=== PATIENT | female | born 1970 | race Caucasian/White ===

== ENCOUNTER → 2020-08-28 09:24 | Outpatient (BNVA) | payer OTHER, SELFPAY | PROVIDERS: Visit Provider Surgery | DX: Z12.11 Encounter for screening for malignant neoplasm of colon (principal); Z20.822 Contact with and (suspected) exposure to COVID-19 | CPT/HCPCS: 87635 ==

== ENCOUNTER 2020-09-03 06:29 | Day surgery (SDC) | payer OTHER, SELFPAY ==
[2020-09-01 09:54] VITALS: BMI 23.6
[2020-09-03 06:55] VITALS: BP 129/94; PULSE 77; RESP 16; TEMP 37; O2SAT 99
--- NOTE | 2020-09-03 06:56 | P.HP_ITS ---
Same Day Surgery H&P Indication for Procedure/HPI DATE OF PROCEDURE: September 03, 2020 CHIEF COMPLAINT/INDICATIONFOR SURGICAL PROCEDURE: Screening colonoscopy PREOP DIAGNOSIS: Screening colonoscopy PLANNED PROCEDRUE: Operation Date: 09/03/20 07:30 Proposed Procedures p Colonoscopy 50268 Z12.11(Not Applicable) - Mani Richards MD This is a pleasant 49 years old female patient referred to my practice to discuss screening colonoscopy. Patient reports that never had a colonoscopy before and she gives history of chronic constipation, denies bleeding per rectum or history of colon cancer and her weight has been fluctuating. Interim history 09/11/2020 Patient comes today for screening colonoscopy ROS All systems have been reviewed, negative except as per the above or per problem list Medications/Allergies* Allergies/Adverse Reactions Allergy/AdvReac Type Severity Reaction Status Date / Time No Known Allergies Allergy Verified 09/03/20 06:58 Pertinent History/Comorbid Conditions* Medical History (Updated 07/31/20 @ 18:04 by Mani Richards MD) History of constipation Family History (Updated 07/30/20 @ 13:35 by Ani Moody) CAD (coronary artery disease) Mother Cancer Grandmother Hypertension Mother Stroke Mother Denies family history of Diabetes Social History Smoking and tobacco status: never smoked Alcohol intake: current Alcohol intake frequency: holidays/special occasions only Lives independently: Yes Household members: spouse and children Pertinent Exam Findings alert, oriented x 3, clear to auscultation bilaterally, regular rate & rhythm and procedure specific exam findings (Abdominal examination nontender nondistended soft) Recommendations Surgery/Procedure today (Screening colonoscopy ) Other Plans: Plan of care; After thorough history and physical examination and reviewing the chart, plan to perform screening colonoscopy. I discussed with the patient in details the risks,benefits,alternatives and indications.The risk of aspiration, bleeding, soft tissue injury, perforation of the colon and other potential concomitant complications were explained to the patient in details,also the potential need for Laproscoy/Laparotomy to repair any related complications including but not limited to colectomy and or Closotomy.The patient understood this well and did agree to proceed. Rationale was carefully and clearly discussed with the patient.Appropriate informed consent have been reviewed and signed All questions have been answered and all concerns have been addressed to patient's satisfaction. Verbal and written Instructions were given to the patient for colonoscopy prep Coding Level of Care Code Acute Diesel Bus Mechanic for Roblesg Leni
--- NOTE | 2020-09-03 07:00 | ANES.PREANE2 ---
Pre-Anesthetic Assessment Pre-Anesthetic Assessment: Height/Weight: Height 1.7 m Weight 68.492 kg Preop Diagnosis: Screening colonoscopy Proposed Procedure: Operation Date: 09/03/20 07:30 Proposed Procedures p Colonoscopy 09317 Z12.11(Not Applicable) - Mani Richards MD Familial anesthetic complications: none Was Beta Jarad taken within 24 hours: N/A Was Clonidine taken within 24 hours: N/A Social: Social History: Alcohol (occassional) and No tobacco Exam: Pre-Anes Outpt Exam: alert, oriented x 3, clear to auscultation bilaterally and regular rate & rhythm Airway: Submandibular: WNL Cervical ROM: WNL MP: 2 Dentition: Full Additional comments: small mouth opening Pulmonary: Pulmonary: None reported CV/HEM: CV/HEM: None reported : : None reported Hepatic: Hepatic: None reported GI: GI: None reported Metabolic: Metabolic: None reported Musc/skel: Musc/skel: None reported Neuropsych: Neuropsych: GAO (frequent) Anesthetic Plan: ASA status: 2 Anesthesia: MAC Risk of > 500 ml blood loss (7ml/kg in children): No PFSH Anesthesia PFSH: Medical History History of constipation Family History Mother CAD (coronary artery disease) Hypertension Stroke Grandmother Cancer Denies family history of Diabetes Social History Smoking and tobacco status: never smoked Alcohol intake: current Alcohol intake frequency: holidays/special occasions only Lives independently: Yes Household members: spouse and children Data Anesthesia Cardiac Studies: No Data to Display
[2020-09-03] MEDS: sodium chloride 0.9% 1,000 ML 30 ML IV (07:07)
[2020-09-03] MEDS: ondansetron 2 mg/ML SDV 2 mL 4 MG IVP (07:09)
--- NOTE | 2020-09-03 08:18 | ANE.PACU2 ---
Inpatient post-anesthesia follow up: Airway intact: Yes Vital signs: Temperature 98.6 F Pulse Rate 77 Respiratory Rate 16 Blood Pressure 129/94 Pulse Oximetry 99 Oxygen Delivery Me thod Room Air Oxygen Flow Rate Fraction of Inspir ed Oxygen Hydration adequate: Yes Nausea and vomiting: No Pain level: 1 Mental status: Baseline
[2020-09-03 08:20] VITALS: BP 85/52; PULSE 65; RESP 16; TEMP 36.2; O2SAT 99
[2020-09-03 08:41] VITALS: BP 100/62; PULSE 63; RESP 20; O2SAT 100
== END 2020-09-03 08:46 | disposition home or self-care (01) ==
PROVIDERS: Visit Provider Surgery
PROC: 0DJD8ZZ Inspection of Lower Intestinal Tract, Via Natural or Artificial Opening Endoscopic (ICD-10-PCS; CPT 45378; principal; 2020-09-03 07:30)
DX: Z12.11 Encounter for screening for malignant neoplasm of colon (principal); K63.89 Other specified diseases of intestine
CPT/HCPCS: 45378; 96361; 96374; J2405; J2704; J7030

== ENCOUNTER 2021-04-06 09:37 | Outpatient (CLI) | payer OTHER, SELFPAY ==
--- NOTE | 2021-04-06 09:46 | MR_ITS ---
WS: [id number] MRI RIGHT SHOULDER HISTORY: IMPINGEMENT SYNDROME OF RIGHT SHOULDER REGION COMPARISON: None available. TECHNIQUE: Multiplanar sequences of the shoulder joint are submitted. Very minimal hypertrophy involving the RIGHT clavicular head. Small amount of increased signal throug h the AC ligament. Small amount of fluid in the subdeltoid bursa. There is a small osteophyte measuri ng approximately 4 mm from the distal undersurface of the acromion with mild subacromial impingement. Biceps tendon is in normal position. No os acromion. Small subchondral cyst in the posterior lateral humeral head. No fractures. Very minimal narrowing of the glenohumeral joint. No muscle atrophy or edema. Very mild tendinopathy and increased T2 signal a long the articular surface of the distal supraspinatus tendon. Most consistent with tendinopathy and not a tear. No rotator cuff tear is identified. Very small amount of increased signal and fraying inv olving the superior labrum. Small incomplete tear not excluded. Otherwise the labrum is unremarkable. MR/MR shoulder RT wo con* [id number] IMPRESSION: 1. Mild subacromial impingement secondary to an osteophyte from the distal und ersurface of the acromion. 2. No rotator cuff tear. 3. Minimal tendinopathy in the distal articular surface supraspinatus tendon. 4. Fraying and possible minimal tear involving the superior labrum.
== END 2021-04-06 09:38 | disposition home or self-care (01) ==
PROVIDERS: Visit Provider Nurse Practitioner
DX: G43.101 Migraine with aura, not intractable, with status migrainosus (principal); M75.41 Impingement syndrome of right shoulder
CPT/HCPCS: 73221

== ENCOUNTER → 2021-06-03 09:00 | Outpatient (BNVA) | payer OTHER, SELFPAY | PROVIDERS: Referring Provider Nurse Practitioner; Visit Provider Specialist | DX: M25.511 Pain in right shoulder (principal) | CPT/HCPCS: 73030 ==

== ENCOUNTER → 2022-02-27 11:47 | Outpatient (BNVA) | payer OTHER, SELFPAY | PROVIDERS: PCP Nurse Practitioner Family; Visit Provider Nurse Practitioner Family | DX: R30.0 Dysuria (principal); N12 Tubulo-interstitial nephritis, not specified as acute or chronic | CPT/HCPCS: 81000; 87077; 87086; 87184 ==

== ENCOUNTER 2023-02-23 10:03 | Emergency (ER) | payer OTHER, SELFPAY ==
[2023-02-23 10:05] VITALS: BP 142/89; PULSE 81; RESP 17; TEMP 36.5; O2SAT 100; BMI 24.0
--- NOTE | 2023-02-23 10:21 | US_ITS ---
WS: [id number] ULTRASOUND ABDOMEN LIMITED CLINICAL INFORMATION: biliary colic like symptoms COMPARISON: None. FINDINGS: Liver Size: Normal. Craniocaudal length: 14.0 cm. Echogenicity: Normal. Surface nodularity: None. Mass (size and location): None. Bile ducts Intrahepatic ducts: Normal. Common bile duct diameter: 0.3 cm. Gallbladder Contracted gallstones: Present Gallbladder sludge: Present Gallbladder wall thickening: None. Pericholecystic fluid: None. Sonographic Ball sign: Absent. Pancreas Not visualized due to bowel gas Right kidney: Normal. Hydronephrosis: None. Size: 9.7 cm x 5.6 cm x 4.5 cm. Abdominal aorta and IVC Visualized portions are normal. Ascites: None. IMPRESSION: 1. Patient not NPO. Gallbladder contracted. 2. Prominent shadowing gallbladder calculus measuring 11 mm. No gallbladder wall thickening or peric holecystic fluid. Gallbladder sludge. 3. No hydronephrosis in the RIGHT kidney. 4. Normal common bile duct measuring 2.8 mm.
--- NOTE | 2023-02-23 10:23 | ED_ITS ---
HPI - Abdominal Pain General: Chief Complaint: Abdominal Pain Stated Complaint: fever, NV, abd pain Time Seen by Provider: 02/23/23 10:08 Source: patient Mode of arrival: ambulatory Limitations: no limitations History of Present Illness: Patient is a nice 52-year-old female who presents to ED today for evaluation of what she believes are biliary colic symptoms. Patient states she has had intermittent episodes of RUQ/epigastric abdominal pain, nausea, vomiting, diarrhea following eating for several months. She feels like the frequency of episodes are increasing and states over the past 1 to 2 weeks she has had increasing frequency and severity of symptoms. She states yesterday/today she began having pain that was much worse than her usual. She states she had a non- official gallbladder ultrasound performed by an manufacturing engineering technician friend earlier today and was told that my gallbladder was non-functioning and measuring at 3.5 and had a stone . Patient reports her symptoms always begin after eating. She reports pain mainly to epigastric region with radiation around her abdomen and into her back. At time of presentation in ED she is actually complaining of right lower abdominal pain. Denies history of excessive alcohol/NSAIDS. No blood noticed in emesis/stool. No dark/tarry stools. No fevers. MD elicited complaint: abdominal pain Pertinent past history: none Onset (ago): week(s) Pain Consistency: intermittent Location: Epigastric and RUQ Severity: moderate Quality: aching and sharp Radiation: back Migration to: no migration Exacerbating factors: eating Relieving factors: nothing Associated Symptoms: Reports diarrhea, nausea and vomiting; Denies change in bowel habits, chills, dysuria, fever(s), hematochezia, hematemesis and melena Related Data: Patient : No Review of Systems Const: Denies: fever(s), chills, body aches, fatigue or malaise Card: Denies: chest pain Resp: Denies: dyspnea GI: Reports: abdominal pain, nausea, vomiting and diarrhea; Denies: hematemesis, change in bowel habits, hematochezia or melena : Denies: flank pain, difficulty voiding, dysuria, urinary frequency, urinary urgency or urinary hesitancy Musc: Denies: neck pain, back pain, extremity pain or joint pain Skin/Breast: Denies: rash Neuro: Denies: headache(s), numbness in extremities, weakness in extremities o r sensory changes [facility] ED PFSH: Medical History Encounter for screening colonoscopy History of constipation Tortuous colon Surgical History History of History of hysterectomy History of tonsillectomy Family History Mother CAD (coronary artery disease) Hypertension Stroke Grandmother Cancer Denies family history of Diabetes Social History Substance/Drug Use: never Physical Exam Const: COMMON NORMALS: no acute distress, average body habitus, patient orient ed x3, no limitations, healthy appearing, alert and well nourished Eye: COMMON NORMALS: no scleral icterus Resp: COMMON NORMALS: normal respiratory effort and clear to auscultation bilaterally AUSCULTATION: clear to auscultation bilaterally Cardio: COMMON NORMALS: regular rate and regular rhythm RATE: regular rate RHYTHM: regular rhythm GI: COMMON NORMALS: Normal to inspection, nondistended, normoactive bowel sounds present, Soft to palpation, No hepatosplenomegaly present and no masses INSPECTION: Yes normal to inspection AUSCULTATION: Yes normoactive bowel sounds PALPATION: Yes Soft to palpation, Yes Tenderness to palpation present (GI) (epigastric) Details: RLQ and RUQ, No Guarding due to palpation present (GI ), No Rigid due to palpation and Yes No hepatosplenomegaly present : COMMON NORMALS: Yes no CVA tenderness BLADDER/KIDNEY EXAM: Yes no CVA tenderness Back/Pelvis: COMMON NORMALS: no CVA tenderness Extremity: GENERAL: Yes normal exam except as noted Neuro: TRUDY COMA SCALE: document GCS findings Trudy coma scale eye opening: Spontaneous Trudy coma scale verbal response: Orientated Trudy coma scale motor response: Obey commands [place] coma scale total score: 15 COMMON NORMALS: patient oriented x3 and gait normal SENSORIUM/ORIENTATION: Yes alert Skin: COMMON NORMALS: no rashes or lesions noted GENERAL SKIN EXAM: no rashes or lesions noted Course Vital Signs: Vital signs: Vital Signs Temperature 97.7 F 02/23/23 10:05 Pulse Rate 71 02/23/23 13:00 Respiratory Rate 17 02/23/23 10:05 Blood Pressure 108/78 02/23/23 13:00 Pulse Oximetry 96 02/23/23 13:00 Oxygen Delivery Me thod Room Air 02/23/23 10:05 MDM - Abdominal Pain Medical Decision Making Vital signs are stable. She has a normal white count. Normal LFTs including T. bili and lipase. Her UA is clear. US gallbladder is contracted with cholelithiasis. She did have gallbladder sludge. No gallbladder wall thickening or pericholecystic fluid. CT scan was ordered due to continued pain today located to her right lower quadrant today. This is essentially normal. They did see cecal constipation. At this time I think symptoms most likely are related to symptomatic cholelithiasis/biliary colic. She states she is going out of town in 2 weeks and ideally would like to follow-up with with general surgery prior to this. I will place a referral with case management to try to get her prompt appointment. She declines pain/nausea medications for home. Strict return ED precautions given. Lab Data 02/23/23 10:30 02/23/23 10:30 Labs/Radiology: Laboratory Results WBC 7.24 10^3/uL (3.29-11.43) 02/23/23 10:30 RBC 4.69 10^6/uL (3.85-5.65) 02/23/23 10:30 Hgb 13.90 g/dL (11.27-16.99) 02/23/23 10:30 Hct 41.3 % (36-47) 02/23/23 10:30 MCV 88.1 fl (85-98) 02/23/23 10:30 MCH 29.6 pg (27-33) 02/23/23 10:30 MCHC 33.7 g/dL (30-55) 02/23/23 10:30 RDW 12.9 % (12.1-15.1) 02/23/23 10:30 Plt Count 258 10^3/cmm (157-399) 02/23/23 10:30 MPV 10.5 fL (7.4-10.4) H 02/23/23 10:30 Neut % (Auto) 68.8 % 02/23/23 10:30 Lymph % (Auto) 18.9 % 02/23/23 10:30 [place] % (Auto) 9.4 % 02/23/23 10:30 Eos % (Auto) 1.4 % 02/23/23 10:30 Baso % (Auto) 1.1 % 02/23/23 10:30 Neut # (Auto) 4.98 10^3/uL (1.8-7.7) 02/23/23 10:30 Lymph # (Auto) 1.4 10^3/uL (0.8-4.8) 02/23/23 10:30 [place] # (Auto) 0.7 10^3/uL (0.2-0.9) 02/23/23 10:30 Eos # (Auto) 0.1 10^3/uL (0.0-0.8) 02/23/23 10:30 Baso # (Auto) 0.1 10^3/uL (0.0-0.1) 02/23/23 10:30 Nucleated RBC % (auto) 0 % 02/23/23 10:30 Nucleated RBCs # 0.0 /100WBC 02/23/23 10:30 Sodium 138 mmol/L (136-145) 02/23/23 10:30 Potassium 4.4 mmol/L (3.5-5.1) 02/23/23 10:30 Chloride 102 mmol/L (98-107) 02/23/23 10:30 Carbon Dioxide 27 mmol/L (22-29) 02/23/23 10:30 Anion Gap 13.4 (5-19) 02/23/23 10:30 BUN 12 mg/dL (6-20) 02/23/23 10:30 Creatinine 0.8 mg/dL (0.5-0.9) 02/23/23 10:30 GFR Calculation 75.0 mL/min (90-130) L 02/23/23 10:30 Glucose 93 mg/dL (65-115) 02/23/23 10:30 Calculated Osmolality 285 mOsm/kg (285-295) 02/23/23 10:30 Calcium 8.9 mg/dL (8.5-10.5) 02/23/23 10:30 Total Bilirubin 0.3 mg/dL (0.15-1.2) 02/23/23 10:30 AST 17 U/L (0-32) 02/23/23 10:30 ALT 17 U/L (0-33) 02/23/23 10:30 Alkaline Phosphatase 86 U/L (35-105) 02/23/23 10:30 Total Protein 7.0 g/dL (6.6-8.7) 02/23/23 10:30 Albumin 4.3 g/dL (3.5-5.2) 02/23/23 10:30 Globulin 2.7 g/dL (1.3-4.6) 02/23/23 10:30 Lipase 39 U/L (13-60) 02/23/23 10:30 Urine Color Colorless (Yellow) 02/23/23 10:23 Urine Appearance Clear (CLEAR) 02/23/23 10:23 Urine pH 6 (5-7) 02/23/23 10:23 Ur Specific [place] 1.010 (1.005-1.030) 02/23/23 10:23 Urine Protein Neg (Negative) 02/23/23 10:23 Urine Glucose (UA) Norm (Normal) 02/23/23 10:23 Urine Ketones Negative (Negative) 02/23/23 10:23 Urine Blood Neg (Negative) 02/23/23 10:23 Urine Nitrate Negative (Negative) 02/23/23 10:23 Urine Bilirubin Neg (Negative) 02/23/23 10:23 Urine Urobilinogen Norm mg/dL (Negative) 02/23/23 10:23 Ur Leukocyte Esterase Negative (Negative) 02/23/23 10:23 All radiology interpretation(s) finalized by discharge Discharge Plan Discharge Patient Disposition: Home Clinical Impression: Biliary colic Condition: Stable Prescriptions: No Action No Known Home Medications Discharge Orders: Discharge ED (Routine); Ordered 02/23/23 Ordered By: Raven Schilling Referrals: Renetta Ordonez FNP [Primary Care Provider] - Patient Instructions: Biliary Colic (ED), Abdominal Pain (ED) Activity Restrictions/Additional Instructions: As we discussed I will have case management reach out to you in regards to your follow-up appoint with general surgery for further evaluation/treatment of your biliary colic-like symptoms. You may return to the emergency department at anytime for worsening or severe abdominal pain, repetitive episodes of vomiting or diarrhea, yellowing to your skin or eyes, fevers, generally feeling worse or unwell, or any other concerns you may have. It was a pleasure to care for you today. I hope you begin to feel better soon. Coding Level of Care Code ED Quarry Equipment Operator for Louisa Farrar
[2023-02-23 10:36] LABS: Basophils # 0.1 10^3/uL (0.0-0.1); Basophils % 1.1 %; Eosinophils # 0.1 10^3/uL (0.0-0.8); Eosinophils % 1.4 %; Hematocrit 41.3 % (36-47); Lymphocytes # 1.4 10^3/uL (0.8-4.8); Lymphocytes % 18.9 %; Mean Corpuscular HGB Conc 33.7 g/dL (30-55); Mean Corpuscular Hemoglobin 29.6 pg (27-33); Mean Corpuscular Volume 88.1 fl (85-98); Mean Platelet Volume 10.5 fL (7.4-10.4); Monocytes # 0.7 10^3/uL (0.2-0.9); Monocytes % 9.4 %; Neutrophils # 4.98 10^3/uL (1.8-7.7); Neutrophils % 68.8 %; Nucleated Red Blood Cells % 0 %; Platelet Count 258 10^3/cmm (157-399); Red Blood Count 4.69 10^6/uL (3.85-5.65); Red Cell Distribution Width 12.9 % (12.1-15.1); White Blood Count 7.24 10^3/uL (3.29-11.43)
[2023-02-23 10:36] LABS: Add Urine Microscopic? NO; Charge for UA Resulting for Rev
--- NOTE | 2023-02-23 10:38 | PC.PHAR ---
PT STATES TAKING NO MEDICATIONS AT THIS TIME. 02/23/23
[2023-02-23 10:52] LABS: Bilirubin Urine Neg (Negative); Blood Urine Neg (Negative); Glucose Urine UA Norm (Normal); Ketones Urine Negative (Negative); Leukocyte Esterase Urine Negative (Negative); Nitrate Urine Negative (Negative); Protein Urine Neg (Negative); Urine Appearance Clear (CLEAR); Urine Color Colorless (Yellow); Urobilinogen Urine Norm (Negative); pH Urine 6 (5-7)
[2023-02-23 10:56] LABS: Alanine Aminotransferase 17 U/L (0-33); Albumin Level 4.3 g/dL (3.5-5.2); Alkaline Phosphatase 86 U/L (35-105); Anion Gap 13.4 (5-19); Aspartate Amino Transferase 17 U/L (0-32); Blood Urea Nitrogen 12 mg/dL (6-20); Calcium 8.9 mg/dL (8.5-10.5); Carbon Dioxide 27 mmol/L (22-29); Chloride 102 mmol/L (98-107); Globulin 2.7 g/dL (1.3-4.6); Glucose 93 mg/dL (65-115); Lipase 39 U/L (13-60); Osmolality Calculated 285 mOsm/kg (285-295); Potassium 4.4 mmol/L (3.5-5.1); Sodium 138 mmol/L (136-145); Total Bilirubin 0.3 mg/dL (0.15-1.2)
[2023-02-23 11:12] VITALS: BP 133/74; PULSE 70; O2SAT 98
[2023-02-23 13:00] VITALS: BP 108/78; PULSE 71; O2SAT 96
--- NOTE | 2023-02-23 13:07 | CT_ITS ---
WS: [id number] CT ABDOMEN PELVIS TECHNIQUE: Contrast-enhanced CT of the abdomen and pelvis with coronal and sagittal reformatted image s. CLINICAL INFORMATION: ab pain, N/V/D, RLQ pain COMPARISON: None. DLP: 535.[address] scans at [facility] use at least one of these dose optimization techniques: automated e xposure control; mA and/or kV adjustment per patient size (includes targeted exams where dose is matc hed to clinical indication); or iterative reconstruction. FINDINGS: Gallbladder is contracted. Cholelithiasis. No gallbladder wall thickening or pericholecystic fluid. Slight bibasilar atelectasis. Mild diffuse fatty filtration of the liver. Mild hepatomegaly. Normal p ortal vein and splenic vein. Normal spleen. Normal pancreas. Adrenal glands are normal. Normal renal parenchymal enhancement. No hydronephrosis. Incidental RIGHT renal cyst. Normal caliber abdominal aor ta. Celiac and SMA are patent. Urine distended bladder. Low-lying cecum in the RIGHT lower quadrant with cecal constipation. Tiny fa t-containing umbilical hernia. IMPRESSION: 1. Gallbladder is contracted. Cholelithiasis. No gallbladder wall thickening or pericholecystic flui d. 2. No hydronephrosis in either kidney. 3. Diffuse fatty filtration of the liver. Moderate volume megaly. 4. Urine distended bladder. 5. Low-lying cecum in the RIGHT lower quadrant with mild cecal constipation.
[2023-02-23] MEDS: iohexol 350 mg/mL 500 mL Btl (per mL) IV (13:46)
[2023-02-23 14:54] VITALS: BP 130/82; PULSE 77; O2SAT 90
--- NOTE | 2023-02-23 15:24 | DCPLANNER ---
Message sent to Gen Surg for Follow up Biliary Colic : Needs soon going out of town.
== END 2023-02-23 14:56 | disposition home or self-care (01) ==
PROVIDERS: Emergency Provider Physician Assistant; PCP Nurse Practitioner Family
DX: K80.20 Calculus of gallbladder without cholecystitis without obstruction (principal)
CPT/HCPCS: 74177; 76705; 80053; 81003; 83690; 85025; 96374; 99285; Q9967

== ENCOUNTER 2023-03-30 07:40 | Day surgery (SDC) | payer OTHER, SELFPAY ==
[2023-03-30] VITALS (12 sets, daily range): BP systolic 119–135; BP diastolic 72–88; PULSE 52–73; RESP 12–28; TEMP 36.2–36.4; O2SAT 96–100; BMI 24.1
[2023-03-30] MEDS: sodium chloride 0.9% 1,000 ML 30 ML IV (08:09)
[2023-03-30] MEDS: scopolamine 1.5 Patch 1 PATCH TRANSDERMA (08:12)
[2023-03-30] MEDS: ondansetron 2 mg/ML SDV 2 mL 4 MG IVP (08:31)
--- NOTE | 2023-03-30 08:40 | W.PM.OPSUD ---
Surgery/Procedure H&P Update DATE OF PROCEDURE: March 30, 2023 DATE H&P PERFORMED: 04/03/23 H&P UPDATE INFORMATION: I have reviewed H&P completed within last 30 days, I have examined patient prior to procedure, No changes to prior documentation and H&P is in [facility] [place] on date indicated PLANNED PROCEDURE: Operation Date: 03/30/23 09:35 Proposed Procedures p 25654 lap dario K80.20(Not Applicable) - Ryan Avila MD
--- NOTE | 2023-03-30 09:07 | ANES.PREANE2 ---
Pre-Anesthetic Assessment Height/Weight: Height 1.73 m Weight 72.121 kg Temp Pulse Resp BP Pulse Ox O2 Del Method 97.5 F L 73 18 135/88 99 Room Air 03/30/23 07:59 03/30/23 07:59 03/30/23 07:59 03/30/23 08:12 03/30/23 07:59 03/30/23 08:03 Operation Date: 03/30/23 09:35 Proposed Procedures p 12383 lap dario K80.20(Not Applicable) - Ryan Avila MD Familial anesthetic complications: PONV Was Beta Jarad taken within 24 hours: N/A Was Clonidine taken within 24 hours: N/A Last intake: Intake Last Liquid Date 03/29/23 Last Liquid Time 20:00 Last Solid Date 03/29/23 Last Solid Time 20:00 Social No alcohol and No tobacco Exam alert, oriented x 3, clear to auscultation bilaterally and regular rate & rhythm Airway Submandibular: within normal limits Cervical ROM: within normal limits Mallampati: Class II Dentition: full Neuropsych Anxiety, Depression, Headache and Neuropathy Anesthetic Plan ASA status: 2 Anesthesia: General Medications/Allergies Home Medications Medication Instructions Recorded Confirmed Last Taken Type sumatriptan succinate 25 mg tablet See Rx Instructions .Route 03/04/23 03/29/23 3 Weeks Ago Rx .COMPLEX #14 ea ~03/08/23 Allergies Allergy/AdvReac Type Severity Reaction Status Date / Time No Known Allergies Allergy Verified 03/29/23 10:19 Current Medications Generic Name Dose Route Start Last Admin Trade Name Freq PRN Reason Stop Dose Admin Sodium Chloride 1,000 mls @ 30 mls/hr 03/30/23 08:00 03/30/23 08:09 Sodium Chloride 0.9% IV 03/31/23 07:59 30 mls/hr .Q24H SHAQ Administration Ondansetron HCl 4 mg 03/30/23 07:48 03/30/23 08:31 Ondansetron 2 Mg/Ml Sdv 2 Ml IVP 4 mg ONCE PRN Administration NAUSEA AND VOMITING PFSH Anesthesia Medical History Encounter for screening colonoscopy History of constipation Tortuous colon Surgical History History of History of hysterectomy History of tonsillectomy Family History Mother CAD (coronary artery disease) Hypertension Stroke Grandmother Cancer Denies family history of Diabetes Social History Substance/Drug Use: never Data Anesthesia Cardiac Studies: No Data to Display
[2023-03-30] MEDS: ceFAZolin 2,000 MG in sodium chloride 0.9% (plus) 50 ML 100 MG IV (09:43)
[2023-03-30] MEDS: lidocaine-epi 2% 20 mL INJ INJECTION (10:55)
[2023-03-30] MEDS: BUPivacaine 0.25% INJ 10 mL INJECTION (10:55)
--- NOTE | 2023-03-30 11:13 | PM.OP ---
Operative Report Date of procedure: March 30, 2023 Pre-op diagnosis: Symptomatic cholelithiasis Post-op diagnosis: Same Post-op findings: Normal biliary anatomy, resolution of stones inside of the gallbladder. Procedure done: Laparoscopic cholecystectomy Specimens removed/disposition: Gallbladder Surgeon: Ryan Avila MD Vp Public Relations: SHANIKA OR Staff Estimated blood loss: 5 Complications: None Brief History: This is a 52-year-old female with history of biliary colic and symptomatic cholelithiasis. Laparoscopic cholecystectomy was indicated, after discussion of all the risk and benefits as documented in my preop note we decided to proceed. Procedure: Patient was brought into the OR, she was placed in the supine position. General esthesia was given. The abdomen was prepped and draped in the usual sterile fashion. Timeout was conducted. The abdomen was accessed with open technique via an infraumbilical incision, a 2 mm Trocar Was Placed and Fixed to the Fascia with 0 Vicryl. Initial Pneumoperitoneum Was Achieved and Laparoscopy Showed No Evidence of Visceral Injury during Entry. Additional 5mm Trocars Were Placed in the Epigastric Right Upper Quadrant and Right Flank Positions. The fundus of the gallbladder was elevated cephalad and the infundibulum was retracted from the inferolateral direction to expose the hepatocystic triangle. The peritoneum anterior to the hepatocystic triangle was then incised, this incision was carried to both sides of the gallbladder to the edges of the liver and on the sides of the gallbladder. Careful dissection of the hepatocystic triangle was done with [place] and the [place]. The cystic duct and artery were encircled and the lower third of the gallbladder was elevated from the liver bed, thus achieving a critical view of safety. The cystic duct and artery were double clipped proximally and single clipped distally and transected. The gallbladder was removed from the liver bed using electrocautery. During removal of the gallbladder from the liver with the gallbladder wall was perforated and Minimal clear bile leak out of the gallbladder. After removal of the gallbladder I then proceeded to suction and irrigate the gallbladder fossa and the perihepatic spaces. Hemostasis was verified and the clips were noted to be in a good position without evidence of bile leak or bleeding. The gallbladder was then retrieved in an Endo Catch bag through the umbilical trocar site, the medical trocar site was then closed under direct visualization using a 0 Vicryl in a Raymundo-Lauren suture passer. The epigastric trocar was removed under direct visualization and no bleeding was noted. The remainder trocars were used to evacuate the pneumoperitoneum and subsequently removed. The wounds were then closed in layers using #4-0 Monocryl for the skin and Dermabond was applied. At the end of the procedure all counts were correct, the patient tolerated well the procedure and was transferred to the PACU in stable condition.
[2023-03-30] MEDS: oxyCODONE 5 mg IR Tab/Cap PO (12:22)
--- NOTE | 2023-03-30 16:56 | ANE.PACU2 ---
Inpatient post-anesthesia follow up: Airway intact: Yes Vital signs: Temperature 97.2 F Pulse Rate 62 Respiratory Rate 16 Blood Pressure 124/72 Pulse Oximetry 98 Oxygen Delivery Me thod Room Air Oxygen Flow Rate Fraction of Inspir ed Oxygen Hydration adequate: Yes Nausea and vomiting: No Pain level: 3 Mental status: Baseline
== END 2023-03-30 12:59 | disposition home or self-care (01) ==
PROVIDERS: PCP Nurse Practitioner Family; Visit Provider Surgery
PROC: 0FT44ZZ Resection of Gallbladder, Percutaneous Endoscopic Approach (ICD-10-PCS; CPT 47562; principal; 2023-03-30 09:25)
DX: K80.10 Calculus of gallbladder with chronic cholecystitis without obstruction (principal)
CPT/HCPCS: 47562; 88304; J0690; J1100; J2250; J2405; J2704; J2710; J3010; J3490; J7030

== ENCOUNTER → 2024-12-03 10:19 | Outpatient (BNVA) | payer OTHER, SELFPAY | PROVIDERS: PCP Nurse Practitioner Family; Visit Provider Nurse Practitioner Women's Health | DX: Z01.419 Encounter for gynecological examination (general) (routine) without abnormal findings (principal) | CPT/HCPCS: 80053; 82306; 82465; 83036; 83718; 83721; 84443; 85025 ==

== ENCOUNTER 2024-12-10 07:57 | Outpatient (CLI) | payer OTHER, SELFPAY ==
--- NOTE | 2024-12-10 08:20 | MM_ITS ---
WS: [id number] BILATERAL 3D TOMOSYNTHESIS DIGITAL SCREENING MAMMOGRAPHY WITH CAD CLINICAL INFORMATION: Z12.39 - Encounter for other screening for malignant neop... HISTORY: Screening mammogram. No current complaints. COMPARISON: 2021 TECHNIQUE: Bilateral CC and MLO views. FINDINGS: The breasts are composed of heterogeneous fibroglandular density tissue, which can limit the detection of small underlying mass lesions. No suspicious mass, asymmetry, calcifications, or architectural distortion. No evidence of malignancy. A few incidental punctate calcifications bilaterally. MM/MM [facility] tomosynthesis [id number] IMPRESSION: DENSITY: The breasts are heterogeneously dense, which may obscure small masses. BI-RADS: 2 - Benign. FOLLOW UP: 1 Year Follow-up Recommend return to annual screening mammography.
== END 2024-12-10 07:58 | disposition home or self-care (01) ==
LOC: RAD 07:58
PROVIDERS: PCP Nurse Practitioner Family; Visit Provider Nurse Practitioner Women's Health
DX: Z12.31 Encounter for screening mammogram for malignant neoplasm of breast (principal); Z01.419 Encounter for gynecological examination (general) (routine) without abnormal findings; R92.333 Mammographic heterogeneous density, bilateral breasts; R92.323 Mammographic fibroglandular density, bilateral breasts; R92.1 Mammographic calcification found on diagnostic imaging of breast
CPT/HCPCS: 77063; 77067